=== PATIENT | male | born 2000 | race Caucasian/White ===

== ENCOUNTER 2019-10-13 15:54 | Emergency (ER) | payer BC ==
[~2019-10-13] VITALS: Ht 175.3 cm; Wt 78.6 kg
[2019-10-13 15:58] VITALS: TEMP 98.7
[2019-10-13 17:24] LABS: BASO % 0.2 % (0.0-2.0); GRAN # 9.1 (1.4-6.5); GRAN % 78.1 % (42.2-75.2); HEMATOCRIT 44.2 % (42.0-52.0); HEMOGLOBIN 15.7 g/dl (13.5-18.0); LYMPH # 1.2 (1.2-3.4); LYMPH % 10.1 % (20.0-51.0); MEAN CELL VOLUME 83 fl (80.0-100.0); MEAN CORPUSCULAR HEMOGLOBIN 29 pg (27.0-31.0); MEAN CORPUSCULAR HGB CONC 36 g/dl (33.0-37.0); MEAN PLATELET VOLUME 9.5 fl (7.4-10.4); MONO # 1.3 (0.1-0.6); MONO % 11.3 % (1.7-9.3); PLATELET COUNT 212 K/mm3 (130-400); RED BLOOD COUNT 5.34 M/mm3 (4.20-5.60); REDCELL DISTRIBUTION WIDTH-CV 11.8 % (11.5-14.5)
[2019-10-13 17:44] LABS: ALBUMIN 5.2 gm/dL (3.5-5.0); BILIRUBIN,TOTAL 1.4 mg/dL (0.0-1.0); CREATININE, serum 1.15 (0.66-1.25); POTASSIUM 3.7 mmol/L (3.4-5.0); TOTAL PROTEIN 8.5 gm/dL (6.4-8.2)
[2019-10-13] MEDS ORDERED: PROTONIX 40MG T40 MG PO (18:29)
[2019-10-13] MEDS ORDERED: NORCO 325 MG-51 TAB PO (18:29)
[2019-10-13] MEDS ORDERED: ZOFRAN ODT4 MG PO (18:29)
[2019-10-13 18:57] VITALS: BP 140/93; PULSE 55
== END 2019-10-13 18:57 | disposition home or self-care (01) ==
LOC: COL.ER 15:54
PROVIDERS: Emergency Medicine
DX: K29.70 Gastritis, unspecified, without bleeding (principal); Z88.0 Allergy status to penicillin; Z88.1 Allergy status to other antibiotic agents
CPT/HCPCS: C9113; J2405; J2550; J3010; J7030